=== PATIENT | male | born 1980 | race Caucasian/White ===

== ENCOUNTER 2016-06-10 12:18 | Day surgery (SDC) | payer MEDICARE ==
[2011-09-23 07:28] VITALS: BMI 26.6
--- NOTE | ~2016-06-10 | OP ---
PATIENT NAME: NAHEED MAHAJAN MEDICAL RECORD: [id number] LOCATION:D.OPS ADMISSION DATE: SURGEON: ZACKERY DICK MD DATE OF OPERATION: 06/10/2016 SURGEON: Zackery Dick MD ANESTHESIA: General anesthesia by Marco Unger CRNA and Dr. Rosales. PREOPERATIVE DIAGNOSES: A 5 mm left distal ureteral stone. POSTOPERATIVE DIAGNOSIS: A 5 mm left distal ureteral stone. PROCEDURES: Cystoscopy, left ureteroscopy and stone extraction, left ureteral stent insertion 5-Turkmen x 22 cm with string attached. COMPLICATIONS: None. ESTIMATED BLOOD LOSS: None. CLINICAL HISTORY: The patient is a 35-year-old male with a prior history of kidney stones. For the past month, he has been complaining of severe flank pain. He could not remember which side he was having pain on. Over the past 2 weeks, he was also having episodes of gross hematuria. He went to his local Emergency Room and they performed a CT scan. However, he did not bring any images with him today. I saw him in the office and although he was pain free. He had not passed the stone yet. I decided that since he lives 2 hours away, we should get the stone out was him before he returns home. He went to our Emergency Room and a repeat CT scan was performed. This showed a 5-mm stone in the distal left ureter. He is not allergic to any medications and we gave him Ancef 2 grams IV distribution designer to the OR. DESCRIPTION OF PROCEDURE: The patient was given induction of general anesthesia. He was then placed in the dorsal lithotomy position and prepped and draped. The patient's urethral meatus was rather narrow and we used male sounds dilated to 24 Turkmen. A 21-Turkmen cystoscope with 30-degree lens was used for visualization. Urethra is normal. Prostatic urethra is nonobstructive. There were single ureteral orifices on each side. The bladder is somewhat inflamed, but no bladder tumors were seen. Most likely the bleeding came from the ureter due to the stone. We then introduced a Sensor wire into the left ureteral orifice. It ran up against the stone and had difficulty passing. I introduced a 5-Turkmen open-ended ureteral catheter over the Sensor wire and pushed it up to the level of the stone. This gave a bit more stiffness to the Sensor wire, which was finally able to migrate past the stone. Once the wire was up in the renal pelvis, we removed the open-ended ureteral catheter. We then placed a 21-Turkmen x 4 cm long ureteral dilation balloon. This was inflated to 20 atmospheres of pressure for a few seconds and then deflated. The ureteral dilation balloon was then entirely removed, leaving the wire behind. The cystoscope was then removed, leaving the wire behind. Beside the wire, we introduced a rigid ureteroscope. The stone was seen and it was found to be buried underneath the ureteral mucosa. This would explain why had failed to progress for the past month. Using the nose of the ureteroscope, I was able to back the stone out of its ureteral pocket. We then placed a 4 wire basket around the stone and completely removed the stone under direct vision. Ureteroscopy was performed up to the mid ureteral level and no ureteral lesions OPERATIVE REPORT [id number] NAHEED MAHAJAN were seen. The wire was then backloaded onto the cystoscope and through the scope and over the wire, a 5-Turkmen x 22 cm ureteral stent was placed. Once the stent was in correct position, the wire was withdrawn entirely. The distal end of stent was pushed into the bladder using the pusher. The bladder was emptied through the cystoscope sheath and then the cystoscope was removed. The string on the distal end of the stent is maintained. In 2 days' time, the patient can remove the stent himself by pulling on the string until it is entirely gone. TRANSINT:[id number] Voice Confirmation ID: [id number] DOCUMENT ID: [id number] ZACKERY DICK MD CC: [id number] DICTATION DATE: 06/10/162002 WHITING MACHINE OPERATOR: 06/11/16 0122 [facility] 06/10/16 [facility] [address] [place] [address]
[2016-06-10 13:18] LABS: APPEARANCE CLEAR (CLEAR); COLOR STRAW (YELLOW); SPECIFIC GRAVITY 1.005 (1.005-1.020)
[2016-06-10 13:21] LABS: BACTERIA FEW /hpf (NONE SEEN); BILIRUBIN NEGATIVE (NEGATIVE); EPITHELIAL CELLS OCC /hpf (0-5); GLUCOSE NEGATIVE (NEGATIVE); KETONE NEGATIVE (NEGATIVE); LEUKOCYTE ESTERASE TRACE (NEGATIVE); NITRITE NEGATIVE (NEGATIVE); PROTEIN NEGATIVE (NEGATIVE); UROBILINOGEN NORMAL (NORMAL); WHITE CELLS - URINE OCC /hpf (0-5)
[2016-06-10 13:22] LABS: GRANULAR CAST NONE SEEN /lpf (NONE SEEN); HYALINE CAST NONE SEEN /lpf (NONE SEEN); SPERMATOZOA NONE SEEN /hpf (NONE SEEN)
[2016-06-10 13:37] LABS: BASOPHILS 0.6 % (0-2); EOSINOPHILS 2.8 % (0-7); HEMOGLOBIN 15.3 g/dL (13.5-17.5); IMMATURE GRANULOCYTES 0.2 % (0-5); LYMPHOCYTES 29.1 % (15-50); MCH 33.1 pg (26.0-34.0); MCHC 35.6 g/dL (31.0-37.0); MCV 93.1 fL (80.0-100.0); MEAN PLATELET VOLUME 9.5 fL (7.4-10.4); MONOCYTES 8.8 % (2-11); NEUTROPHILS 58.5 % (40-80); RBC 4.62 10x6/uL (4.20-6.10); RDW 13.7 % (11.5-14.5)
[2016-06-10 13:39] LABS: PLATELET COUNT 203 10x3/uL (130-400)
[2016-06-10 13:57] LABS: ALBUMIN 4.1 g/dL (3.4-5.0); ALKALINE PHOSPHATASE 73 U/L (46-116); ALT (SGPT) 22 U/L (10-68); BILIRUBIN - TOTAL 0.38 mg/dL (0.2-1.3); CALC OSMOLALITY 282 mosm/kg (275-300); CARBON DIOXIDE 23.2 mmol/L (21.0-32.0); CHLORIDE - SERUM 106 mmol/L (98-107); CREATININE - SERUM 0.7 mg/dL (0.6-1.3); POTASSIUM - SERUM 3.9 mmol/L (3.5-5.1); PROTEIN - SERUM 7.7 g/dL (6.4-8.2); SODIUM 142 mmol/L (136-145); UREA NITROGEN 13 mg/dL (7-18); eGFR NON AFRICAN AMERICAN > 90 mL/min (90-120)
[2016-06-10 14:00] LABS: GLUCOSE 94 mg/dL (74-106)
--- NOTE | 2016-06-10 20:30 | NUR ---
ASSESSMENT COMPLETED, NO ACUTE DISTRESS NOTED, ASSISTED TO RESTROOM, PT URINATED RED TINGED URINE, REMAINS IN RESTROOM, STATES " I FEEL LIKE I NEED TO HAVE A BOWEL MOVEMENT", CL IN REACH, IN ROOM, WILL MONITOR
--- NOTE | 2016-06-10 21:05 | NUR ---
UP TO RESTROOM, DRANK WATER WITH NO NAUSEA, PASSING GAS, VSS, WILL CONTINUE TO MONITOR
--- NOTE | 2016-06-10 21:28 | NUR ---
PT WISHING TO LEAVE, IN STABLE CONDITION, IV DC'D WITH CATH INTACT
--- NOTE | 2016-06-10 21:42 | NUR ---
DISCHARGE INSTRUCTIONS AND PRESCRIPTION GIVEN TO PT, DISCUSSED WITH PT AND SPOUSE, UNDERSTANDING VOICED, TAKEN TO VEHICLE VIA WHEELCHAIR WITH ALL BELONGINGS, NO DISTRESS NOTED
== END 2016-06-10 21:35 | disposition home or self-care (01) ==
LOC: D.OPS 12:18 → D.ER 12:18 → EDSTATUS 14:00 → D.OPS 21:35
PROVIDERS: Family Medicine; Urology
DX: N20.1 Calculus of ureter (principal); Z72.0 Tobacco use; Z01.812 Encounter for preprocedural laboratory examination

== ENCOUNTER → 2016-06-16 19:33 | Outpatient (CLI) | payer MEDICARE ==
[2011-09-23 07:28] VITALS: BMI 26.6
== END | disposition home or self-care (01) ==
LOC: D.LABREF 19:33
DX: L72.0 Epidermal cyst (principal)